=== PATIENT | female | born 1955 | race Two or more races ===

== ENCOUNTER 2022-09-13 09:47 | Emergency (ER) | payer OTHER ==
[~2022-09-13] VITALS: Ht 157.5 cm; Wt 81.6 kg
[2022-09-13] MEDS ORDERED: CRESTOR5 MG PO (10:01)
[2022-09-13] MEDS ORDERED: LOSARTAN-HCTZ1 EAC2 PO (10:01)
[2022-09-13] MEDS ORDERED: ATENOLOL25 MG PO (10:01)
[2022-09-13] MEDS ORDERED: ZETIA10 MG (10:02)
[2022-09-13] MEDS ORDERED: AMOX-CLAV 875-1 EACH PO (14:02)
[2022-09-13] MEDS ORDERED: BENADRYL25 MG PO (14:02)
== END 2022-09-13 14:21 | disposition home or self-care (01) ==
LOC: ER 09:47
DX: L03.113 Cellulitis of right upper limb (principal); I10 Essential (primary) hypertension